=== PATIENT | female | born 2000 | race Two or more races ===

== ENCOUNTER 2021-01-23 22:48 | Emergency (ER) | payer MEDICAID ==
[~2021-01-23] VITALS: Ht 165.1 cm; Wt 77.0 kg
[2021-01-24 00:30] VITALS: BP 134/78
[2021-01-24] MEDS ORDERED: ACET-2708 MT (00:32)
== END 2021-01-24 00:38 | disposition home or self-care (01) ==
LOC: ER 22:48
DX: S09.8XXA Other specified injuries of head, initial encounter (principal); R55 Syncope and collapse; W01.118A Fall on same level from slipping, tripping and stumbling with subsequent striking against other sharp object, initial encounter; Y93.89 Activity, other specified; Y99.8 Other external cause status
CPT/HCPCS: 81025; 93005; 99283